=== PATIENT | female | born 1980 | race African-American/Black ===

== ENCOUNTER 2016-08-18 15:25 | Emergency (ER) | payer OTHER ==
[~2016-08-18] VITALS: Wt 76.0 kg
[~2016-08-18 15:25] MED LIST: BEN50 PO; FOLI-49 PO; GABA300C16 PO; HYDR2TAB15 PO; HYDR500C3 PO; HYDR8TAB25 PO; LANT3I SC; MULT-552 PO; NOVO3I SC; ONDA4TAB8 PO; OXYC-281 PO; RIVA20TA PO; SULF1TAB7 PO
--- NOTE | 2016-08-18 19:17 | ERD ---
ER Documentation Chief Complaint Date/Time DATE: 08/18/16 TIME: 19:15 Chief Complaint SICKLE CELL PAIN HPI Patient is a 36-year-old female with self-reported sickle cell pain who presents with a complaint of "I am having a sickle cell pain crisis". She said that she has had this for the past 3 days. She has abdominal pain and bilateral leg pain. She has constant and sharp pain. She has had no treatment as of yet. Upon review of old medical record she has multiple visits to the ER for pain complaints. Review of the emergency department information exchange shows visits to 10 different emergency departments with similar type pain and she does have a care plan which recommends avoiding narcotic medicines. ROS All systems reviewed and are negative except as per history of present illness. Medications Home Meds Active Scripts Hydromorphone Hcl* (Dilaudid*) 2 Mg Tablet, 1 MG PO Q3H Y for PAIN, #14 TAB Prov:BREANNA BOOGIE 05/21/16 Hydromorphone Hcl* (Dilaudid*) 2 Mg Tablet, 1 MG PO Q4H Y for PAIN, #2 TAB Prov:SULLY MARIE MD 12/22/15 Oxycodone Hcl-Acetaminophen* (Percocet*) 5-325 Mg Tablet, 1 TAB PO TID, #9 TAB Prov:LINDSEY MILLARD MD 12/18/15 Ondansetron Hcl* (Zofran*) 4 Mg Tablet, 4 MG PO Q6H for NAUSEA AND/OR VOMITING, #20 TAB Prov:LINDSEY MILLARD MD 12/18/15 Rivaroxaban* (Xarelto*) 20 Mg Tablet, 20 MG PO WITH DINNER, #30 TAB Prov:LINDSEY MILLARD MD 12/18/15 Reported Medications Multivitamins* (Once Daily*) 1 Tab Tablet, 1 TAB PO DAILY, TAB 12/14/15 Sulfamethoxazole-Trimethoprim* (Bactrim* DS) 800-160 Mg Tab, 1 TAB PO BID, #20 TAB FOR 14 DAYS STATED ON 12/02/15 12/14/15 Hydromorphone Hcl* (Dilaudid*) 8 Mg Tablet, 8 MG PO Q4H Y for PAIN, TAB 12/14/15 Insulin Glargine* (Lantus*) 100 Unit/Ml Soln, 30 UNIT SC QHS, #1 VIAL 5/24/16 Diphenhydramine Hcl* (Benadryl*) 50 Mg Cap, 50 MG PO DAILY Y for ITCHING, CAP 09/12/15 Folic Acid* (Folic Acid*) 1 Mg Tablet, 1 MG PO DAILY, TAB 09/12/15 Hydroxyurea* (Hydroxyurea*) 500 Mg Capsule, 500 MG PO DAILY, CAP 09/12/15 Gabapentin* (Gabapentin*) 300 Mg Capsule, 300 MG PO TID, #90 CAP 09/12/15 Rivaroxaban* (Xarelto*) 20 Mg Tablet, 20 MG PO WITH DINNER, TAB 07/23/15 Insulin Aspart* (Novolog Insulin Pen*) 100 Unit/Ml Soln, 0 SC .SLIDING SCALE AC , EA 07/23/15 Allergies Allergies: Coded Allergies: Penicillins (Verified Allergy, Unknown, 06/07/16) aspirin (Verified Allergy, Unknown, 06/07/16) ketorolac (Verified Allergy, Unknown, 06/07/16) PMhx/Soc History of Surgery: Yes (REMOVAL OF BLOOD CLOT LT ARM,CHOLECYSTECTOMY, TUBAL LIGATION) Anesthesia Reaction: No Hx Neurological Disorder: No Hx Respiratory Disorders: No Hx Cardiac Disorders: Yes (BLOOD CLOT LEFT ARM) Hx Psychiatric Problems: No Hx Miscellaneous Medical Probl: Yes (Pancreatitis,Sickle Cell Anemia,Arms Cellulitis,DM) Hx Alcohol Use: No Hx Substance Use: No Hx Tobacco Use: Yes Smoking Status: Former smoker FmHx Family History: No diabetes Physical Exam Vitals Vital Signs Date Time Temp Pulse Resp B/P Pulse Ox O2 Delivery O2 Flow Rate FiO2 08/18/16 15:27 98.0 120 18 136/91 99 Physical Exam Const: Mild distress secondary to pain Head: Atraumatic Eyes: Normal Conjunctiva ENT: Normal External Ears, Nose and Mouth. Neck: Full range of motion..~ No meningismus. Resp: Clear to auscultation bilaterally Cardio: Regular rate and rhythm, no murmurs Abd: Soft, diffuse tenderness to palpation without rebound or guarding Skin: No petechiae or rashes Back: No midline or flank tenderness Ext: No cyanosis, or edema Neur: Awake and alert Psych: Normal Mood and Affect Procedures/MDM Patient is a 36-year-old female who presents with acute on chronic pain. I believe that there is pain seeking behavior here and I told her I would not give her any narcotic medicines. She left the emergency department as soon as I told her she would not get pain medication here or prescriptions for pain medicines. She will need to follow-up with a pain management doctor and I did provide her information for Dr. Devries. Please review the [employer] system and [employer] database for this patient in the future. I would avoid narcotic medicines. Departure Diagnosis: Primary Impression: Chronic pain Chronic pain type: chronic pain syndrome Qualified Code: G89.4 - Chronic pain syndrome Condition: Fair Patient Instructions: Chronic Pain Referrals: DYLLAN DEVRIES Additional Instructions: SPECIALIST: YOU HAVE A MEDICAL CONDITION WHICH REQUIRES YOU TO SEE A SPECIALIST WITHIN THE NEXT 1-2 DAYS. PLEASE FOLLOW UP WITH YOUR PRIMARY PHYSICIAN FOR REFFERAL.IF YOU DO NOT HAVE A PRIMARY CARE PHYSICIAN AND/OR YOU CAN NOT AFFORD TO SEE A PHYSICIAN THE FOLLOWING RESOURCES HAVE BEEN SUPPLIED TO YOU. IT IS YOUR RESPONSIBILITY TO BE SEEN BY THE SPECIALIST SULLY MARIE MD Aug 18, 2016 19:17
== END 2016-08-18 18:33 | disposition home or self-care (01) ==
LOC: FTE 15:25
DX: G89.4 Chronic pain syndrome (principal); E11.9 Type 2 diabetes mellitus without complications; Z87.891 Personal history of nicotine dependence; Z79.4 Long term (current) use of insulin; Z79.01 Long term (current) use of anticoagulants
CPT/HCPCS: 99282

== ENCOUNTER 2016-11-12 06:24 | Emergency (ER) | payer MEDICAID, OTHER ==
[~2016-11-12] VITALS: Ht 167.6 cm; Wt 88.0 kg
[2016-11-12 06:28] VITALS: Ht 167.6 cm; Wt 88.0 kg
[2016-11-12] MEDS ORDERED: HYDROmorphONE 2 MG/ML SYG IM STA (07:34)
[2016-11-12] MEDS ORDERED: ONDANSETRON (ODT) 4 MG TAB ODT STA (07:34)
--- NOTE | 2016-11-12 07:39 | ERD ---
ER Documentation Chief Complaint Date/Time DATE: 11/12/16 TIME: 07:38 Chief Complaint genralized bodyaches, hx sickle cell HPI This is a 36-year-old female who states that she is having her typical joint pain from her sickle cell disease. She states this started yesterday. However when I review the records she was just here on the . I recognize her from [place]. The patient states that she has run out of her Dilaudid early. She is due for refill on Saturday. She tells me it is because her doctor who is managing her pain has added a new prescription to her prescription regimen and this has limited the amount of narcotics that she can receive in 1 month. She denies any fever, chest pain, shortness of breath, coughing, congestion, abdominal pain, nausea, vomiting, or diarrhea. The remainder of the systems are negative. ROS All systems reviewed and are negative except as per history of present illness. Medications Home Meds Active Scripts Hydromorphone Hcl* (Dilaudid*) 2 Mg Tablet, 1 MG PO Q3H Y for PAIN, #14 TAB Prov:BREANNA BOOGIE 05/21/16 Hydromorphone Hcl* (Dilaudid*) 2 Mg Tablet, 1 MG PO Q4H Y for PAIN, #2 TAB Prov:SULLY MARIE MD 12/22/15 Oxycodone Hcl-Acetaminophen* (Percocet*) 5-325 Mg Tablet, 1 TAB PO TID, #9 TAB Prov:LINDSEY MILLARD MD 12/18/15 Ondansetron Hcl* (Zofran*) 4 Mg Tablet, 4 MG PO Q6H for NAUSEA AND/OR VOMITING, #20 TAB Prov:LINDSEY MILLARD MD 12/18/15 Rivaroxaban* (Xarelto*) 20 Mg Tablet, 20 MG PO WITH DINNER, #30 TAB Prov:LINDSEY MILLARD MD 12/18/15 Reported Medications Multivitamins* (Once Daily*) 1 Tab Tablet, 1 TAB PO DAILY, TAB 12/14/15 Sulfamethoxazole-Trimethoprim* (Bactrim* DS) 800-160 Mg Tab, 1 TAB PO BID, #20 TAB FOR 14 DAYS STATED ON 12/02/15 12/14/15 Hydromorphone Hcl* (Dilaudid*) 8 Mg Tablet, 8 MG PO Q4H Y for PAIN, TAB 12/14/15 Insulin Glargine* (Lantus*) 100 Unit/Ml Soln, 30 UNIT SC QHS, #1 VIAL 11/22/15 Diphenhydramine Hcl* (Benadryl*) 50 Mg Cap, 50 MG PO DAILY Y for ITCHING, CAP 09/12/15 Folic Acid* (Folic Acid*) 1 Mg Tablet, 1 MG PO DAILY, TAB 09/12/15 Hydroxyurea* (Hydroxyurea*) 500 Mg Capsule, 500 MG PO DAILY, CAP 09/12/15 Gabapentin* (Gabapentin*) 300 Mg Capsule, 300 MG PO TID, #90 CAP 09/12/15 Rivaroxaban* (Xarelto*) 20 Mg Tablet, 20 MG PO WITH DINNER, TAB 07/23/15 Insulin Aspart* (Novolog Insulin Pen*) 100 Unit/Ml Soln, 0 SC .SLIDING SCALE AC , EA 07/23/15 Allergies Allergies: Coded Allergies: Penicillins (Verified Allergy, Unknown, 06/07/16) aspirin (Verified Allergy, Unknown, 06/07/16) ketorolac (Verified Allergy, Unknown, 06/07/16) PMhx/Soc History of Surgery: Yes (REMOVAL OF BLOOD CLOT LT ARM,CHOLECYSTECTOMY, TUBAL LIGATION) Anesthesia Reaction: No Hx Neurological Disorder: No Hx Respiratory Disorders: No Hx Cardiac Disorders: Yes (BLOOD CLOT LEFT ARM) Hx Psychiatric Problems: No Hx Miscellaneous Medical Probl: Yes (Pancreatitis,Sickle Cell Anemia,Arms Cellulitis,DM) Hx Alcohol Use: No Hx Substance Use: No Hx Tobacco Use: Yes Smoking Status: Current every day smoker Physical Exam Vitals Vital Signs Date Time Temp Pulse Resp B/P Pulse Ox O2 Delivery O2 Flow Rate FiO2 11/12/16 06:28 97.8 132 20 133/69 100 Physical Exam Const: [] Well-developed well-nourished -[place] female sitting on the bed no acute distress Head: Atraumatic normocephalic Eyes: no scleral icterus, conjunctivae are only mildly pale ENT: Normal External Ears, Nose and Mouth. Neck: Full range of motion..~ No meningismus. Resp: Clear to auscultation bilaterally Cardio: Mildly tachycardic, no murmurs, rubs, or gallops Abd: Soft, non tender, non distended. Normal bowel sounds Skin: No petechiae or rashes Back: No midline or flank tenderness Ext: No cyanosis, or edema, full range of motion of all joints Neur: Awake and alert, oriented 3, GCS of 15, nonfocal Psych: Normal Mood and Affect Results 24 hrs Current Medications Medications (Trade) Dose Ordered Sig/Abraham Route PRN Reason Start Time Stop Time Status Last Admin Dose Admin Hydromorphone HCl (Dilaudid) 2 mg ONCE STAT IM 11/12/16 07:34 11/12/16 07:36 DC Ondansetron HCl (Zofran Odt) 4 mg ONCE STAT ODT 11/12/16 07:34 11/12/16 07:36 DC Diphenhydramine HCl (Benadryl) 25 mg ONCE ONCE IM 11/12/16 08:00 11/12/16 08:01 Procedures/MDM Differential includes but is not limited to chronic pain syndrome, narcotic withdrawal, behavior suspicious for narcotic seeking, sickle cell disease Medical decision making: I will treat the patient's chronic pain. I have advised her that she should seek treatment with her primary care physician. She needs to discuss her pain needs with her primary care physician as this is more appropriate. Departure Diagnosis: Primary Impression: Chronic pain Condition: Good Patient Instructions: Sickle Cell Anemia, Understanding Chronic Pain Additional Instructions: Please make a follow-up appointment with your regular physician who is managing her pain. You should discuss with him or her your need for your medications. You need to discuss with this physician how their prescription has affected your ability to fill your narcotics. Return to the emergency department for any new or worsening symptoms. PARMJIT FULTON November 12, 2016 07:38
[2016-11-12] MEDS ORDERED: DIPHENHYDRAMINE 50 MG INJ IM ONE (08:00)
== END 2016-11-12 08:43 | disposition home or self-care (01) ==
LOC: E/R 06:24
DX: G89.29 Other chronic pain (principal); E11.9 Type 2 diabetes mellitus without complications; F17.210 Nicotine dependence, cigarettes, uncomplicated; Z79.4 Long term (current) use of insulin; Z79.01 Long term (current) use of anticoagulants
CPT/HCPCS: 96372; J1170; J1200; Z7502; Z7610

== ENCOUNTER 2016-11-19 09:41 | Emergency (ER) | payer MEDICAID ==
[~2016-11-19] VITALS: Wt 75.0 kg
[2016-11-19] MEDS ORDERED: HYDROmorphONE 1 MG/ML SYG IM STA ×2 (10:21→11:31)
[2016-11-19] MEDS ORDERED: LIDOCAINE 1% (MDV) 20 ML INJ SC ONE (10:30)
[2016-11-19] MEDS ORDERED: CLIN-73 PO (11:10)
--- NOTE | 2016-11-19 11:25 | ERD ---
ER Documentation Chief Complaint Date/Time DATE: 11/19/16 TIME: 11:21 Chief Complaint SICKLE CELL CRISIS SENT FOR PAIN MANAGEMENT HPI 36-year-old female history of sickle cell comes emergency department for body pain all over, back pain, and patient also developed an abscess on the right side of her chest. Patient reports that she did have a Port-A-Cath removed 6 months ago, and subsequently developed a abscess to the right side of her chest , she states she has had this for "long time", she does not specify. She states that she is going to see a pain specialist as well as hematology and primary provider in 2 days at [facility] of [facility]. She states she does not want a prescription for pain medicine as it may interfere with her getting further prescription medication in 2 days. She does not have any chest pain, shortness breath. She denies any fevers, chills or dizziness. ROS All systems reviewed and are negative except as per history of present illness. Medications Home Meds Active Scripts Clindamycin Hcl* (Clindamycin Hcl*) 300 Mg Capsule, 300 MG PO TID for 7 Days, CAP Prov:CARLO GUZMÁN PA-C 11/19/16 Hydromorphone Hcl* (Dilaudid*) 2 Mg Tablet, 1 MG PO Q3H Y for PAIN, #14 TAB Prov:BREANNA BOOGIE 05/21/16 Hydromorphone Hcl* (Dilaudid*) 2 Mg Tablet, 1 MG PO Q4H Y for PAIN, #2 TAB Prov:SULLY MARIE MD 12/22/15 Oxycodone Hcl-Acetaminophen* (Percocet*) 5-325 Mg Tablet, 1 TAB PO TID, #9 TAB Prov:LINDSEY MILLARD MD 12/18/15 Ondansetron Hcl* (Zofran*) 4 Mg Tablet, 4 MG PO Q6H for NAUSEA AND/OR VOMITING, #20 TAB Prov:LINDSEY MILLARD MD 12/18/15 Rivaroxaban* (Xarelto*) 20 Mg Tablet, 20 MG PO WITH DINNER, #30 TAB Prov:LINDSEY MILLARD MD 12/18/15 Reported Medications Multivitamins* (Once Daily*) 1 Tab Tablet, 1 TAB PO DAILY, TAB 12/14/15 Sulfamethoxazole-Trimethoprim* (Bactrim* DS) 800-160 Mg Tab, 1 TAB PO BID, #20 TAB FOR 14 DAYS STATED ON 12/02/15 12/14/15 Hydromorphone Hcl* (Dilaudid*) 8 Mg Tablet, 8 MG PO Q4H Y for PAIN, TAB 12/14/15 Insulin Glargine* (Lantus*) 100 Unit/Ml Soln, 30 UNIT SC QHS, #1 VIAL 11/22/15 Diphenhydramine Hcl* (Benadryl*) 50 Mg Cap, 50 MG PO DAILY Y for ITCHING, CAP 09/12/15 Folic Acid* (Folic Acid*) 1 Mg Tablet, 1 MG PO DAILY, TAB 09/12/15 Hydroxyurea* (Hydroxyurea*) 500 Mg Capsule, 500 MG PO DAILY, CAP 09/12/15 Gabapentin* (Gabapentin*) 300 Mg Capsule, 300 MG PO TID, #90 CAP 09/12/15 Rivaroxaban* (Xarelto*) 20 Mg Tablet, 20 MG PO WITH DINNER, TAB 07/23/15 Insulin Aspart* (Novolog Insulin Pen*) 100 Unit/Ml Soln, 0 SC .SLIDING SCALE AC , EA 07/23/15 Allergies Allergies: Coded Allergies: Penicillins (Verified Allergy, Unknown, 06/07/16) aspirin (Verified Allergy, Unknown, 06/07/16) ketorolac (Verified Allergy, Unknown, 06/07/16) PMhx/Soc History of Surgery: Yes (REMOVAL OF BLOOD CLOT LT ARM,CHOLECYSTECTOMY, TUBAL LIGATION) Anesthesia Reaction: No Hx Neurological Disorder: No Hx Respiratory Disorders: No Hx Cardiac Disorders: Yes (BLOOD CLOT LEFT ARM) Hx Psychiatric Problems: No Hx Miscellaneous Medical Probl: Yes (Pancreatitis,Sickle Cell Anemia,Arms Cellulitis,DM) Hx Alcohol Use: No Hx Substance Use: No Hx Tobacco Use: Yes Smoking Status: Current every day smoker Physical Exam Vitals Vital Signs Date Time Temp Pulse Resp B/P Pulse Ox O2 Delivery O2 Flow Rate FiO2 11/19/16 09:43 98.0 118 18 140/94 99 Physical Exam General: Well-developed, well-nourished. The patient appears in no acute distress. HEENT: Head is normocephalic, atraumatic. No scleral icterus. Neck: Supple. Nontender. Lungs: Clear to auscultation. Normal air movement. Heart: Regular rate and rhythm. S1 and S2 are normal. No murmurs, gallops, or rubs. Abdomen: Soft, nontender, nondistended. Bowel sounds are normoactive. Extremities: No clubbing or cyanosis. Normal pulses. Moving extremities x 4. No weakness. Neurologic: Alert and oriented 3. No focal deficits. Skin: Right side of her chest has a 3.5 cm fluctuant area. Results 24 hrs Current Medications Medications (Trade) Dose Ordered Sig/Abraham Route PRN Reason Start Time Stop Time Status Last Admin Dose Admin Lidocaine (Xylocaine 1% (Mdv) 20 ml) 20 ml ONCE ONCE SC 11/19/16 10:30 11/19/16 10:31 DC 11/19/16 10:58 Hydromorphone HCl (Dilaudid) 1 mg ONCE STAT IM 11/19/16 10:21 11/19/16 10:22 DC 11/19/16 10:54 Procedures/MDM ED course: Patient was given Dilaudid 2 mg IM. Abscess Incision and Drainage with irrigation by me: Patient was verbally consented Location: Right anterior chest Anesthesia: Local 1% Lidocaine, 3 cc Technique: Irrigated. Disrupted loculations w/ instrumentation Packing: None Complications: Neurovascularly intact post procedure 48 hour wound check. Scar minimization instructions given. Patient's skin symptoms have stabilized while they have been evaluated in the department and are appropriate for outpatient care and work up. Exam and w/u not consistent w/ sepsis, deep space infection, or foreign body. MDM: 36-year-old female comes in with chronic pain, as well as an abscess. Patient was advised that we do have a pain policy and further prescriptions would not be refilled. She agrees with this and is aware that she needs to follow-up with one provider, she states that she will see them on Saturday which is 2 days from now. Abscess was incised and drained, there is a large amount of pus I was able to be removed she tolerated the procedure well. This case was also discussed with my attending physician who agrees with the plan of care. Patient's blood pressure was elevated (>120/80) but appears stable without evidence of hypertension emergency or urgency. The patient was counseled about the risks of hypertension and urged to pursue outpatient monitoring and therapy within a week with their primary care physician. Departure Diagnosis: Primary Impression: Abscess Additional Impression: Pain Condition: Good Patient Instructions: Abscess, Incision And Drainage, Chronic Pain Additional Instructions: Call your primary care doctor TOMORROW for an appointment during the next 1-2 days.See the doctor sooner or return here if your condition worsens before your appointment time. CARLO GUZMÁN PA-C November 19, 2016 11:25
== END 2016-11-19 11:43 | disposition home or self-care (01) ==
LOC: FTE 09:41
DX: L02.213 Cutaneous abscess of chest wall (principal); E11.9 Type 2 diabetes mellitus without complications; F17.210 Nicotine dependence, cigarettes, uncomplicated; Z79.4 Long term (current) use of insulin
CPT/HCPCS: 10061; 96372; J1170; Z7502; Z7610

== ENCOUNTER 2016-12-25 08:26 | Emergency (ER) | payer SELFPAY ==
[~2016-12-25] VITALS: Wt 83.5 kg
[~2016-12-25 08:26] MED LIST changes: +CLIN-73 PO
[2016-12-25 08:48] VITALS: BP 150/79; PULSE 101; RESP 18
--- NOTE | 2016-12-25 09:30 | ERD ---
ER Documentation Chief Complaint Date/Time DATE: 12/25/16 TIME: 09:29 Chief Complaint GENERALIZED CHRONIC BODY PAINS HPI Patient is a 36-year-old female with sickle cell pain and diabetes who presents with "a lot of body pain". She said the symptoms started yesterday. She said that she was moving stuff out of her sister's house and that she is under stress is the sister recently committed suicide and it is the one-year anniversary of her father's . She tried taking a Dilaudid pill yesterday and only has one left. She plans to see her primary doctor tomorrow. She does not currently have a pain management doctor. Upon review of old medical records the patient has multiple visits to the emergency department. Review of the emergency department information exchange system shows 11 different ERs that she visits for a total of 57 visits over the past 12 months. ROS All systems reviewed and are negative except as per history of present illness. Medications Home Meds Active Scripts Clindamycin Hcl* (Clindamycin Hcl*) 300 Mg Capsule, 300 MG PO TID for 7 Days, CAP Prov:CARLO GUZMÁN PA-C 11/19/16 Hydromorphone Hcl* (Dilaudid*) 2 Mg Tablet, 1 MG PO Q3H Y for PAIN, #14 TAB Prov:BREANNA BOOGIE 05/21/16 Hydromorphone Hcl* (Dilaudid*) 2 Mg Tablet, 1 MG PO Q4H Y for PAIN, #2 TAB Prov:SULLY MARIE MD 12/22/15 Oxycodone Hcl-Acetaminophen* (Percocet*) 5-325 Mg Tablet, 1 TAB PO TID, #9 TAB Prov:LINDSEY MILLARD MD 12/18/15 Ondansetron Hcl* (Zofran*) 4 Mg Tablet, 4 MG PO Q6H for NAUSEA AND/OR VOMITING, #20 TAB Prov:LINDSEY MILLARD MD 12/18/15 Rivaroxaban* (Xarelto*) 20 Mg Tablet, 20 MG PO WITH DINNER, #30 TAB Prov:LINDSEY MILLARD MD 12/18/15 Reported Medications Multivitamins* (Once Daily*) 1 Tab Tablet, 1 TAB PO DAILY, TAB 12/14/15 Sulfamethoxazole-Trimethoprim* (Bactrim* DS) 800-160 Mg Tab, 1 TAB PO BID, #20 TAB FOR 14 DAYS STATED ON 12/02/15 12/14/15 Hydromorphone Hcl* (Dilaudid*) 8 Mg Tablet, 8 MG PO Q4H Y for PAIN, TAB 12/14/15 Insulin Glargine* (Lantus*) 100 Unit/Ml Soln, 30 UNIT SC QHS, #1 VIAL 11/22/15 Diphenhydramine Hcl* (Benadryl*) 50 Mg Cap, 50 MG PO DAILY Y for ITCHING, CAP 09/12/15 Folic Acid* (Folic Acid*) 1 Mg Tablet, 1 MG PO DAILY, TAB 09/12/15 Hydroxyurea* (Hydroxyurea*) 500 Mg Capsule, 500 MG PO DAILY, CAP 09/12/15 Gabapentin* (Gabapentin*) 300 Mg Capsule, 300 MG PO TID, #90 CAP 09/12/15 Rivaroxaban* (Xarelto*) 20 Mg Tablet, 20 MG PO WITH DINNER, TAB 07/23/15 Insulin Aspart* (Novolog Insulin Pen*) 100 Unit/Ml Soln, 0 SC .SLIDING SCALE AC , EA 07/23/15 Allergies Allergies: Coded Allergies: Penicillins (Verified Allergy, Unknown, 06/07/16) aspirin (Verified Allergy, Unknown, 06/07/16) ketorolac (Verified Allergy, Unknown, 06/07/16) PMhx/Soc History of Surgery: Yes (REMOVAL OF BLOOD CLOT LT ARM,CHOLECYSTECTOMY, TUBAL LIGATION) Anesthesia Reaction: No Hx Neurological Disorder: No Hx Respiratory Disorders: No Hx Cardiac Disorders: Yes (BLOOD CLOT LEFT ARM) Hx Psychiatric Problems: No Hx Miscellaneous Medical Probl: Yes (Pancreatitis,Sickle Cell Anemia,Arms Cellulitis,DM) Hx Alcohol Use: No Hx Substance Use: No Hx Tobacco Use: Yes Smoking Status: Current every day smoker Physical Exam Vitals Vital Signs Date Time Temp Pulse Resp B/P Pulse Ox O2 Delivery O2 Flow Rate FiO2 12/25/16 08:48 101 18 150/79 100 12/25/16 08:32 97.4 105 18 140/75 100 Physical Exam Const: [] Head: Atraumatic Eyes: Normal Conjunctiva ENT: Normal External Ears, Nose and Mouth. Neck: Full range of motion..~ No meningismus. Resp: Clear to auscultation bilaterally Cardio: Regular rate and rhythm, no murmurs Abd: Soft, non tender, non distended. Normal bowel sounds Skin: No petechiae or rashes Back: No midline or flank tenderness Ext: No cyanosis, or edema Neur: Awake and alert Psych: Normal Mood and Affect Departure Diagnosis: Primary Impression: Pain Condition: Fair Patient Instructions: Chronic Pain Referrals: DYLLAN DICKINSON Additional Instructions: SPECIALIST: YOU HAVE A MEDICAL CONDITION WHICH REQUIRES YOU TO SEE A SPECIALIST WITHIN THE NEXT 1-2 DAYS. PLEASE FOLLOW UP WITH YOUR PRIMARY PHYSICIAN FOR REFFERAL.IF YOU DO NOT HAVE A PRIMARY CARE PHYSICIAN AND/OR YOU CAN NOT AFFORD TO SEE A PHYSICIAN THE FOLLOWING RESOURCES HAVE BEEN SUPPLIED TO YOU. IT IS YOUR RESPONSIBILITY TO BE SEEN BY THE SPECIALIST SULLY MARIE MD Dec 25, 2016 09:30
== END 2016-12-25 08:51 | disposition home or self-care (01) ==
LOC: E/R 08:26
DX: R52 Pain, unspecified (principal); E11.9 Type 2 diabetes mellitus without complications; F17.210 Nicotine dependence, cigarettes, uncomplicated; Z79.01 Long term (current) use of anticoagulants; Z79.4 Long term (current) use of insulin
CPT/HCPCS: 99282

== ENCOUNTER 2017-10-30 06:33 | Emergency (ER) | END 2017-10-30 07:22 | disposition home or self-care (01) ==